=== PATIENT | female | born 1965 | race African-American/Black ===

== ENCOUNTER 2017-10-21 13:00 | Emergency (ER) | payer OTHER ==
[~2017-10-21] VITALS: Ht 160 cm; Wt 83.0 kg
[2017-10-21] MEDS ORDERED: PENICILLIN VK500 M1 PO (13:12)
[2017-10-21] MEDS ORDERED: VITAMIN D2000 UNIT PO (13:22)
[2017-10-21] MEDS ORDERED: ATORVASTATIN CA40 MG PO (13:22)
[2017-10-21] MEDS ORDERED: CARVEDILOL3.125 MG PO (13:22)
[2017-10-21] MEDS ORDERED: ZOLOFT100 MG PO (13:23)
[2017-10-21] MEDS ORDERED: RANEXA500 MG PO (13:23)
[2017-10-21] MEDS ORDERED: CLARITIN10 MG PO (13:24)
[2017-10-21] MEDS ORDERED: ISOSORBIDE DINI20 M2 PO (13:24)
[2017-10-21] MEDS ORDERED: LYRICA 50 MG50 MG PO (13:24)
[2017-10-21] MEDS ORDERED: PERCOCET 7.5-31 EACH PO (13:25)
[2017-10-21] MEDS ORDERED: VENTOLIN HFA 1818 GM INH (13:33)
== END 2017-10-21 13:35 | disposition home or self-care (01) ==
LOC: ER 13:00
DX: K02.9 Dental caries, unspecified (principal); Z87.891 Personal history of nicotine dependence; Z88.8 Allergy status to other drugs, medicaments and biological substances